=== PATIENT | female | born 1975 | race Caucasian/White ===

== ENCOUNTER 2016-06-04 20:44 | Emergency (ER) | payer OTHER ==
[2016-06-04 21:37] LABS: SPECIFIC GRAVITY 1.015 (1.001-1.030); URINE BILIRUBIN NEGATIVE (NEGATIVE); URINE BLOOD 4+ (NEGATIVE); URINE GLUCOSE (UA) NEGATIVE (NEGATIVE); URINE LEUKOCYTE ESTERASE TRACE (NEGATIVE); URINE NITRITE NEGATIVE (NEGATIVE); URINE PROTEIN TRACE (NEGATIVE); URINE UROBILINOGEN NORMAL (0-1 mg/dl)
[2016-06-04 21:45] LABS: URINE APPEARANCE TURBID; URINE COLOR BROWN
[2016-06-04 21:46] LABS: URINE BACTERIA 1+; URINE EPITHELIAL CELLS 15-20 /hpf; URINE RBC >100 /hpf
[2016-06-04 22:58] LABS: ABSOLUTE NEUTROPHIL COUNT 7.4 K/mm3 (1.8-7.7); BASO # 0.1 K/mm3 (0.0-0.2); BASO % 1.1 % (0.2-1.0); EOS # 0.1 (0.0-0.5); EOS % 1.1 % (0.9-2.9); HEMATOCRIT 39.8 % (37.0-47.0); HEMOGLOBIN 12.8 gm/l (12.0-16.0); IMM NEUT% 0.4 % (0-1); LYMPH # 1.2 (1.0-4.8); LYMPH % 12.7 % (15-45); MEAN CELL VOLUME 89.6 fl (81.0-99.0); MEAN CORPUSCULAR HEMOGLOBIN 28.8 pg (27.0-31.0); MEAN CORPUSCULAR HGB CONC 32.2 g/dl (33.0-37.0); MEAN PLATELET VOLUME 9.7 fl (7.4-10.4); MONO # 0.5 (0.0-0.8); MONO % 5.5 % (4-12); NEUT % 79.2 % (43-75); PLATELET COUNT 343 K/mm3 (130-400); RED CELL DISTRIBUTION WIDTH 13.1 % (11.5-14.5)
[2016-06-04 23:11] LABS: ALB/GLOB RATIO 1.3 (>1.0); CALCIUM 9.7 mg/dL (8.6-10.3)
[2016-06-04] MEDS ORDERED: HYDROMORPHONE HCL 1 MG/ML SYRINGE ONE (23:14)
[2016-06-04] MEDS ORDERED: SODIUM CHLORIDE 0.9% 1,000 ML ONE (23:14)
[2016-06-04] MEDS ORDERED: ONDANSETRON 4 MG/2ML 2 ML VIAL ONE (23:14)
[2016-06-04] MEDS ORDERED: PANTOPRAZOLE SODIUM 40 MG VIAL IV ONE (23:14)
[2016-06-05] MEDS ORDERED: HYDROMORPHONE HCL 1 MG/ML SYRINGE ONE (00:42)
[2016-06-05 01:58] LABS: HCG,QUALITATIVE URINE NEGATIVE
[2016-06-05] MEDS ORDERED: CEFTRIAXONE 1 GRAM DUPLEX 50 ML IV ONE (01:58)
[2016-06-05] MEDS ORDERED: HYDROMORPHONE HCL 0.5 MG/0.5 ML SYRINGE ONE (01:59)
--- NOTE | 2016-06-05 07:50 | US ---
RENALS/BLADDER HISTORY: Right-sided pain. History of kidney stones. COMPARISONS: CT exam dated 05/12/2015 and ultrasound exam dated 09/21/2014. FINDINGS: Ultrasonography of both kidneys demonstrates normal renal echogenicity. The right kidney measures 11.5 x 4.8 x 5.6 cm. The left kidney measures 10.7 x 4.9 x 4.8 cm. The cortical thickness measures 8 mm on the right and 13 mm on the left. The resistive indices are normal. No discrete masses or calcifications are observed. No evidence of significant hydronephrosis is visualized. The bladder contour is appropriate. There is a prevoid volume of 215 mL with a postvoid residual of 5 mL's. Both ureteral jets were identified within the lumen of the bladder. IMPRESSION: 1. A negative renal ultrasound. No discrete calculi or evidence of hydronephrosis is visualized. The findings were called to the emergency room at 0051 hours, 06/05/2016, by [facility].
== END 2016-06-05 02:33 | disposition home or self-care (01) ==
LOC: ED 20:44
DX: R31.9 Hematuria, unspecified (principal); R10.9 Unspecified abdominal pain; R11.2 Nausea with vomiting, unspecified; M25.50 Pain in unspecified joint; Z87.442 Personal history of urinary calculi
CPT/HCPCS: 83605; 86141; 81025; 85025 ×2; 80053 ×2; 85651; 81001; 76770; 96375 ×3; 96376; 99284 ×2; 96361 ×2; 96365; J1170 ×3; C9113; J2405; J7030; J0696